=== PATIENT | male | born 1945 | race Caucasian/White ===

== ENCOUNTER 2023-01-04 09:21 | Outpatient (REF) | payer MEDICARE, OTHER, SELFPAY ==
--- NOTE | ~2023-01-04 | XR_ITS ---
EXAMINATION: XR ELBOW, RIGHT CLINICAL INFORMATION: Edema. COMPARISON: None available. TECHNIQUE: AP, lateral, and oblique views of the right elbow. FINDINGS: There is moderate soft tissue along the posterior elbow likely olecranon bursitis. No visible acute fracture or dislocation seen. A small bony spur along the olecranon process. No joint effusion seen. There are no loose bodies. XR/XR elbow RT min 3V IMPRESSION: 1. Moderate soft tissue swelling likely olecranon bursitis. No visible acute fracture, dislocation or subluxation seen. 2. Small bony spur along the olecranon process.
== END 2023-01-04 09:22 | disposition home or self-care (01) ==
LOC: HO.HMGCX 09:21
PROVIDERS: Visit Provider Nurse Practitioner Family
DX: R60.9 Edema, unspecified (principal)
CPT/HCPCS: 73080

== ENCOUNTER → 2023-01-20 14:36 | Outpatient (BNVA) | payer OTHER, SELFPAY | PROVIDERS: PCP Pediatrics; Visit Provider Physician Assistant ==